=== PATIENT | female | born 1990 | race Two or more races ===

== ENCOUNTER 2024-11-15 11:56 | Emergency (ER) | payer MEDICAID, SELFPAY ==
--- NOTE | ~2024-11-15 | CT_ITS ---
EXAMINATION: CT ABDOMEN PELVIS WITHOUT IV CONTRAST HISTORY: abdominal pain, loose stools bloody stools COMPARISON: There are no prior studies for comparison. TECHNIQUE: CT scan of the abdomen and pelvis was performed without contrast using standard departmental protocol. Coronal and sagittal reformatted images were generated and reviewed. Oral contrast material was not administered at the request of the referring physician. This CT exam was performed with one or more of the following dose reduction techniques: automated exposure control, adjustment of the mA and/or kV according to patient size, use of iterative reconstruction technique. DLP: 548 mGy-cm FINDINGS: LOWER CHEST: The visualized lung bases are clear. There is no pleural effusion. CARDIOVASCULATURE: The heart is normal in size. There is no pericardial effusion. LIVER: The liver is normal in size and contour. The liver has an unremarkable unenhanced appearance. GALLBLADDER / BILE DUCTS: The gallbladder is unremarkable. There is no intra or extrahepatic biliary ductal dilatation. SPLEEN: The spleen is normal in size and has an unremarkable unenhanced appearance. PANCREAS: The pancreas has an unremarkable unenhanced appearance. ADRENAL GLANDS: Unremarkable. KIDNEYS/RETROPERITONEUM: No renal calculi are identified. There is no hydronephrosis. LYMPH NODES: No retroperitoneal lymphadenopathy is identified in the abdomen or pelvis. VASCULATURE: The abdominal aorta is normal in caliber. MESENTERY/PERITONEUM: No free fluid. No masses. There is no free intraperitoneal gas. STOMACH: There is a large amount of debris in the stomach. SMALL BOWEL: The small bowel is normal in caliber. COLON: There is probable wall thickening of the sigmoid colon. Evaluation is limited by underdistention and lack of intravenous and oral contrast material. APPENDIX: Normal. URINARY BLADDER/PELVIC ORGANS: The urinary bladder is collapsed, limiting evaluation. The uterus and ovaries have an unremarkable unenhanced appearance. BONES / SOFT TISSUES: No suspicious bony or soft tissue abnormalities. CT/CT abdomen pelvis wo IV con IMPRESSION: Probable wall thickening of the sigmoid colon, suggestive of colitis. Evaluation is limited by underdistention lack of intravenous and oral contrast material. Electronically signed by: Ramez Barclay MD 11/15/2024 02:30 PM EDT
--- NOTE | 2024-11-15 12:07 | ED.GENADULT ---
HPI - General Adult General Chief complaint: GI Bleed Stated complaint: blood in stools abd and back pain Time Seen by Provider: 11/15/24 13:19 Source: patient Mode of arrival: ambulatory Limitations: no limitations History of Present Illness ED Provider: CHANELLE ABDUL narrative: 34 yo female with no PMH here with c/o low L back pain wraps around abdomen goes to upper thigh it is achy she also notes waking up this AM with loose stools that have blood in it. No fevers reported. No n/v. She has not traveled, had food exposures, been on antibiotics. Her partner and her had the same food and partner is fine. She has never had any GI bleed symptoms. She is not on blood thinners MD complaint: GI bleed, abd and back pain Onset (ago): hour(s) (today) Location: back and abdomen Radiation: back and abdomen Severity: moderate Quality: aching Pain Consistency: intermittent Relieving factors: none Exacerbating factors: none Associated symptoms: other (bloody stools, loose stools) Treatments prior to arrival: none Related Data Previous Rx's ?Medication ?Instructions ?Recorded cyclobenzaprine 10 mg tablet 10 mg PO TID PRN muscle spasm #20 11/15/24 tabs hydrocodone 5 mg-acetaminophen 325 1 tab PO Q6H PRN pain #10 tabs 11/15/24 mg tablet ondansetron 4 mg disintegrating 4 mg PO Q8H PRN nausea and 11/15/24 tablet vomiting #20 tabs Allergies Allergy/AdvReac Type Severity Reaction Status Date / Time Iodinated Contrast Media Allergy Hives Verified 11/15/24 12:09 [Contrast Dye] Review of Systems Review of Systems: Constitutional : No Weight loss, No Fever, No Chills, ENT/Mouth : No Hearing loss, No Ear Pain, No Nasal Congestion, No Sinus Pain, No Hoarseness, No sore throat, No Rhinorrhea, No Swallowing Difficulty Cardiovascular : No Chest Pain, No SOB Respiratory : No Cough, No Dyspnea Gastrointestinal : No Nausea, No Vomiting, No Diarrhea, pos abdominal Pain, pos Hematochezia, No Melena Genitourinary : No Dysuria, No Urinary Frequency, No Hematuria, No Urinary Incontinence, Musculoskeletal : positive back pain Skin : No Skin Lesions, No rash Neuro : No Weakness, No Numbness, No Paresthesias, no loss of bowel or bladder incontinence, no saddle anesthesia all other systems are reviewed and are negative PMFSH Past Medical History Attestation statement: The following information was validated with the patient. Source: old records reviewed Medical History No pertinent past medical history Social History Social History (Updated 11/15/24 @ 13:45 by Paula Araya DO) Patient Tobacco Use Status: Tobacco use Unknown Smoked in Last 30 Days: Yes Use of substances other than those prescribed or required for medical reasons: Yes Substance Use Type: Marijuana Any prior treatment program specific to substance use: No Advance Directives: No Advance Directives Information Provided: Yes Do you have a plan to hurt others: No Plan Physical Exam ED Vital Signs: Vital Signs - 24 hr 11/15/24 12:08 11/15/24 14:04 11/15/24 15:07 Temperature 98.1 F 98.4 F Pulse Rate 93 65 Respiratory Rate 16 22 H 18 Blood Pressure 119/77 113/71 Pulse Oximetry 97 98 Oxygen Delivery Method Room Air Room Air BMI result Body Mass Index 31.5 Appearance: Alert. Oriented X3. No acute distress. Eyes: Pupils equal, round and reactive to light. ENT: Pharynx normal. Neck: Normal inspection. Neck supple. CVS: Normal heart rate and rhythm. Pulses normal. Respiratory: No respiratory distress. Breath sounds normal. Abdomen: Soft and mild ttp in lower abdomen no rebound Back: ttp along lower lumbar spine lateral Rectal: exam by EMA luna ext hemorrhoids and no blood on digit Skin: Skin warm and dry. Normal skin color. Normal skin turgor. Extremities: No lower extremity edema. No calf ttp Neuro: Oriented X 3. No motor deficit. No sensory deficit. CN2-12 intact Course Course Course Narrative: This is a rapid medical exam performed by Noemi Hunter NP: Additional HPI, ROS, PE not included below will be deferred to primary provider. 11/15/24 12:07 Patient is a 34-year-old female presenting to the ED with complaint of bright red blood in stool which began today. Denies history of same. Also has lower back pain and cramping. Plan: labs, UA Medications Administered Discontinued Medications Generic Name Dose Route Start Last Admin Trade Name Freq PRN Reason Stop Dose Admin Lactated Ringer's 1,000 mls @ 999 mls/hr 11/15/24 13:29 11/15/24 14:03 Lr IV 11/15/24 14:29 999 mls/hr .Q1H1M ONE Administration Morphine Sulfate 2 mg 11/15/24 13:29 11/15/24 14:04 Morphine Sulfate 2 Mg/Ml Cartridge IVPUSH 11/15/24 13:30 2 mg ONCE ONE Administration Protocol Ondansetron HCl 4 mg 11/15/24 13:29 11/15/24 14:02 Ondansetron Hcl 4 Mg/2 Ml Vial IVPUSH 11/15/24 13:30 4 mg ONCE ONE Administration Medical Decision Making Medical Decision Making MDM Narrative: 34 yo female no sig PMH no risk factors for colitis no fam hx of IBD comes in with low back and abdominal pain and bloody stools. No fevers, no recent travel, abx use, food exposures. At this time given history will obtain basic labs, rectal exam and will obtain CT scan for any signs of inflammation Differential Diagnosis Differential Diagnoses: The differential diagnosis associated with the presentation includes colitis, diarrhea, hemorrhoid, back pain, sciatica Admission/Observation Consideration of admission/observation: Escalation of care including admission/observation considered H/H stable, VS stable, no acute bleeding here CT scan focal colitis Lab Data [facility] Lab Attestation statement: I reviewed the patient's lab results. reassuring no anemia 11/15/24 12:26 11/15/24 12:26 Labs: Lab Results 11/15/24 Range/Units 12:26 WBC 7.8 (4.8-10.8) X10*3/uL RBC 4.51 (4.20-5.50) X10*6/uL Hgb 13.8 (12.0-16.0) g/dl Hct 41.2 (37.0-47.0) % MCV 91.4 (80.0-98.0) fL MCH 30.6 (27.0-33.0) pg MCHC 33.5 (31.0-35.0) g/dl RDW 12.3 (11.0-16.0) % Plt Count 284 (160-400) X10*3/uL MPV 10.0 (9.4-12.3) fL Immature Gran % (Auto) 0.4 (0.0-0.4) % Neut % (Auto) 64.3 (45-73) % Lymph % (Auto) 26.9 (20-40) % [place] % (Auto) 7.6 (2-11) % Eos % (Auto) 0.4 (0-4) % Baso % (Auto) 0.4 (0-2) % Lymph # (Auto) 2.1 (1.2-4.9) X10*3/uL [place] # (Auto) 0.6 (0.1-1.2) X10*3/uL Eos # (Auto) 0.0 (0.0-0.4) X10*3/uL Baso # (Auto) 0.0 (0.0-0.2) X10*3/uL Abs Immat Gran (auto) 0.03 (0.00-0.03) X10*3/uL Absolute Neuts (auto) 5.0 (2.0-8.3) x10*3/uL Absolute Nucleated RBC 0.000 (0.0-0.012) X10*3/uL Nucleated RBC % (auto) 0.0 (0.0-0.2) /100WBC Sodium 138 (135-145) mmol/L Potassium 4.8 (3.3-5.1) mmol/L Chloride 106 (96-108) mmol/L Carbon Dioxide 26 (22-29) mmol/L Anion Gap 11 L (12-20) BUN 14 (9-16) mg/dL Creatinine 0.66 (0.5-1.4) mg/dL Estim Creat Clear Calc 104.7 Estimated GFR > 60 Random Glucose 102 (60-115) mg/dL Calcium 9.6 (8.4-10.2) mg/dL Total Bilirubin 0.3 (0.0-1.0) mg/dL AST 19 (5-31) U/L ALT 10 (0-31) U/L Alkaline Phosphatase 50 (39-117) U/L C-Reactive Protein 0.85 H (< or = 0.50) mg/dL Total Protein 7.8 (6.5-8.0) g/dL Albumin 4.4 (3.5-5.0) g/dL Beta HCG, Quant < 2 mIU/mL Urine Color Yellow Urine Appearance Cloudy Urine pH 6.5 (5.0-9.0) Ur Specific [place] 1.020 (1.005-1.025) Urine Protein Negative (Neg-Trace) mg/dL Urine Glucose (UA) Negative (Negative) mg/dL Urine Ketones Negative (Negative) mg/dL Urine Blood Small (1+) H (Negative) Urine Nitrite Negative (Negative) Ur Leukocyte Esterase Trace H (Negative) Urine RBC 3-5 H (0-2) /HPF Urine WBC 0-5 (0-5) /HPF Ur Squamous Epith Cells 6-10 (0-2) /HPF Urine Bacteria 2+ (None Seen) Hyaline Casts 0-2 (0-2) /LPF Independent Interpretation I performed an independent interpretation of an: CT Scan (colitis) Radiology Impression Discussion of test interpretation with radiology: I have reviewed the radiologist's reading. Independent Historian Clinical information obtained from an independent historian. History obtained from or confirmed by: Other (partner) Prescription Management I considered prescription management with: Pain Medication and Other Discharge Plan Discharge Clinical Impression: Colitis Hemorrhoids Qualifiers: Hemorrhoid type: unspecified Qualified Code(s): K64.9 - Unspecified hemorrhoids Sciatica Qualifiers: Laterality: left Qualified Code(s): M54.32 - Sciatica, left side Patient Disposition: Home, Self-Care Instructions: Hemorrhoids (ED), Back Pain (ED), Colitis (ED) Additional Instructions: labs reassuring including no anemia at this time focal area of inflammation in the sigmoid colon as discussed this should resolve on its own return for worsening pain, increased bleeding, dizziness, fainting or any other concerns avoid aspirin rest and stay hydrated eat a bland diet - bananas, rice, apple sauce, toast over the next 3 days and then advance slowly Prescriptions: New cyclobenzaprine 10 mg tablet 10 mg PO TID PRN (Reason: muscle spasm) Qty: 20 0RF hydrocodone-acetaminophen 5-325 mg tablet 1 tab PO Q6H PRN (Reason: pain) Qty: 10 0RF Rx Instructions: partial fill okay; Partial Fill upon patient request. ondansetron 4 mg tablet,disintegrating 4 mg PO Q8H PRN (Reason: nausea and vomiting) Qty: 20 0RF Referrals: [facility] [Provider Group] (call to schedule) Stand Alone Forms: Work/School Release Print Language: Burkinan
[2024-11-15 12:08] VITALS: BP 119/77; PULSE 93; RESP 16; TEMP 36.7; O2SAT 97; BMI 31.5
[2024-11-15 12:32] LABS: MANUAL DIFF FLAG NO
[2024-11-15 12:33] LABS: Basophils Percent Auto 0.4 % (0-2); Eosinophils Percent Auto 0.4 % (0-4); Hematocrit 41.2 % (37.0-47.0); Hemoglobin 13.8 g/dl (12.0-16.0); Imm Gran Abs Auto 0.03 X10*3/uL (0.00-0.03); Imm Gran Pct Auto 0.4 % (0.0-0.4); Lymphocytes Absolute Auto 2.1 X10*3/uL (1.2-4.9); Lymphocytes Percent Auto 26.9 % (20-40); Mean Corpuscular HGB Conc 33.5 g/dl (31.0-35.0); Mean Corpuscular Hemoglobin 30.6 pg (27.0-33.0); Mean Corpuscular Volume 91.4 fL (80.0-98.0); Monocytes Absolute Auto 0.6 X10*3/uL (0.1-1.2); Monocytes Percent Auto 7.6 % (2-11); Neutrophils Percent Auto 64.3 % (45-73); Platelet Count 284 X10*3/uL (160-400); Red Blood Count 4.51 X10*6/uL (4.20-5.50); Red Cell Distribution Width 12.3 % (11.0-16.0); White Blood Count 7.8 X10*3/uL (4.8-10.8)
[2024-11-15 12:38] LABS: Appearance Urine Cloudy; Color Urine Yellow; Glucose Urine UA Negative (Negative); Leukocyte Esterase Urine Trace (Negative); Nitrite Urine Negative (Negative); PH 6.5 (5.0-9.0); UMIC TRIGGER UACC YES; Urine Blood Small (1+) (Negative); Urine Ketones Negative (Negative); Urine Protein Negative (Neg-Trace)
[2024-11-15 12:51] LABS: Bacteria Urine 2+ (None Seen); Hyaline Casts Urine 0-2 /LPF (0-2); WBC Urine 0-5 /HPF (0-5)
[2024-11-15 12:54] LABS: Alanine Aminotransferase 10 U/L (0-31); Albumin Level 4.4 g/dL (3.5-5.0); Anion Gap 11 (12-20); Aspartate Amino Transferase 19 U/L (5-31); Bilirubin Total 0.3 mg/dL (0.0-1.0); Blood Urea Nitrogen 14 mg/dL (9-16); Calcium 9.6 mg/dL (8.4-10.2); Carbon Dioxide 26 mmol/L (22-29); Chloride 106 mmol/L (96-108); Creatinine Clr Calc Pharmacy 104.7; Estimated Glomerular Filt Rate > 60; Glucose Random 102 mg/dL (60-115); Potassium 4.8 mmol/L (3.3-5.1); Sodium 138 mmol/L (135-145); Total Protein 7.8 g/dL (6.5-8.0)
[2024-11-15 12:55] LABS: Alkaline Phosphatase 50 U/L (39-117)
[2024-11-15 12:57] LABS: HCG Quantitative < 2 mIU/mL
[2024-11-15] MEDS: ondansetron HCL 4 MG/2 ML VIAL IVPUSH (14:02)
[2024-11-15] MEDS: Lactated Ringers 1,000 ML 999 ML IV (14:03)
[2024-11-15 14:04] VITALS: RESP 22
[2024-11-15] MEDS: Morphine Sulfate 2 MG/ML CARTRIDGE IVPUSH (14:04)
[2024-11-15 14:26] LABS: C Reactive Protein 0.85 mg/dL (< or = 0.50)
[2024-11-15 15:07] VITALS: BP 113/71; PULSE 65; RESP 18; TEMP 36.9; O2SAT 98
[2024-11-15 15:46] VITALS: BP 113/71; PULSE 65; RESP 18; TEMP 36.9; O2SAT 98
--- OUTSIDE RECORDS SUMMARY | 2024-11-15 16:22 | XMS_ITS | Clinical Summary ---
Author Organization [facility] Address [address] [place] [address] Care Team Providers Care Infantry Officer Name Role Phone Pcp, No Primary Care Provider Unavailabl e Allergies Active Allergy Reactions Criticality Noted Date Comments Iodinated Contrast Media Hives Medium 12/02/2021 Medications ondansetron (ZOFRAN-ODT) 4 MG disintegrating tablet Take 1 tablet (4 mg total) by mouth 3 times daily (every 8 hours) as needed for nausea or vomiting. Place tablet on tongue to dissolve. 6 tablet 2 Active loperamide (IMODIUM A-D) 2 MG capsule Take two now by mouth then one after each loose BM. Use sparingly. Stop for increasing symptoms and contact your doctor 10 capsule 2 Active benzonatate (TESSALON) 200 MG capsule Take 1 capsule (200 mg total) by mouth Every 4 (four) to 6 (six) hours as needed for cough. 20 capsule 2 Active oseltamivir (TAMIFLU) 75 MG capsule Take 1 capsule (75 mg total) by mouth 2 (two) times a day. 10 capsule 2 Active Social History Tobacco Use Types Packs/Day Years Used Date Smoking Tobacco: Never Smokeless Tobacco: Never Comments No Sex and Gender Information Value Date Recorded Sex Assigned at Female 12/26/2021 2:19 AM EDT Legal Sex Female 1:51 PM EDT Gender Identity Male 12/26/2021 2:19 AM EDT Sexual Orientation Not on file Last Filed Vital Signs Vital Sign Reading Time Taken Comments Blood Pressure 130/62 12/26/2021 3:45 AM EDT Pulse 102 12/26/2021 3:45 AM EDT Temperature 38.7 ??C (101.7 ??F) 12/26/2021 3:45 AM E DT Respiratory Rate 20 12/26/2021 3:45 AM EDT Oxygen Saturation 98% 12/26/2021 3:45 AM EDT Inhaled Oxygen Concentration - - Weight - - Height - - Body Mass Index - - Plan of Treatment Health Maintenance Due Date Last Done Comments Hepatitis C Virus Screening 1992 HIV Screening 2005 DTaP/Tdap/Td Vaccines (1 - Tdap) 2011 Hepatitis B Vaccines (1 of 3 - 19+ 3-dose series) 2011 Pap Smear (Ages 21-65) 2013 Influenza Vaccine 03/01/2024 COVID-19 Vaccine (3 - 2023-2 5 season) 2024 11/17/2021, 10/23/2021 HPV Vaccines Aged Out No longer eligi ble based on patient's age to complete this topic Pneumococcal Vaccine: Pediatric (0-5 Years) and At-Risk Patients (6 to 49 Years) Aged Out No longer eligible b ased on patient's age to complete this topic Care Teams Infantry Officer Relationship Specialty Start Date End Date Pcp, No PCP - General General Medicine 12/02/21
== END 2024-11-15 15:46 | disposition home or self-care (01) ==
PROVIDERS: Registered Nurse Emergency; Emergency Provider Emergency Medicine
DX: K52.9 Noninfective gastroenteritis and colitis, unspecified (principal); K64.9 Unspecified hemorrhoids; M54.42 Lumbago with sciatica, left side
CPT/HCPCS: 36415; 74176; 80053; 81001; 84702; 85025; 86140; 96374; 96375; 99284; J2270; J2405; J7120

== ENCOUNTER → 2024-11-15 13:29 | Outpatient (BNV) | payer MEDICAID, SELFPAY | PROVIDERS: Emergency Provider Emergency Medicine; Visit Provider Radiology Diagnostic Radiology | DX: R10.9 Unspecified abdominal pain (principal); K92.1 Melena; R19.7 Diarrhea, unspecified | CPT/HCPCS: 74176 ==

== ENCOUNTER 2024-11-18 23:22 | Emergency (ER) | payer MEDICAID, SELFPAY ==
[2024-11-18 23:31] VITALS: BP 108/60; PULSE 84; RESP 18; TEMP 37; O2SAT 96; BMI 33.3
[2024-11-18 23:49] LABS: Basophils Percent Auto 0.3 % (0-2); Eosinophils Absolute Auto 0.1 X10*3/uL (0.0-0.4); Eosinophils Percent Auto 1.1 % (0-4); Hematocrit 35.9 % (37.0-47.0); Hemoglobin 12.3 g/dl (12.0-16.0); Imm Gran Abs Auto 0.03 X10*3/uL (0.00-0.03); Imm Gran Pct Auto 0.3 % (0.0-0.4); Lymphocytes Percent Auto 28.6 % (20-40); MANUAL DIFF FLAG NO; Mean Corpuscular HGB Conc 34.3 g/dl (31.0-35.0); Mean Corpuscular Hemoglobin 31.3 pg (27.0-33.0); Mean Corpuscular Volume 91.3 fL (80.0-98.0); Mean Platelet Volume 9.9 fL (9.4-12.3); Monocytes Absolute Auto 0.9 X10*3/uL (0.1-1.2); Monocytes Percent Auto 8.6 % (2-11); Neutrophils Absolute Auto 6.4 x10*3/uL (2.0-8.3); Neutrophils Percent Auto 61.1 % (45-73); Platelet Count 262 X10*3/uL (160-400); Red Blood Count 3.93 X10*6/uL (4.20-5.50); Red Cell Distribution Width 12.1 % (11.0-16.0); White Blood Count 10.4 X10*3/uL (4.8-10.8)
[2024-11-18 23:54] LABS: Appearance Urine Clear; Color Urine Yellow; Glucose Urine UA Negative (Negative); Leukocyte Esterase Urine Small (1+) (Negative); Nitrite Urine Negative (Negative); Specific Gravity - Urine 1.025 (1.005-1.025); UMIC TRIGGER UACC YES; Urine Blood Trace (Negative); Urine Ketones Trace mg/dL (Negative); Urine Protein Negative (Neg-Trace)
[2024-11-19 00:03] LABS: Alanine Aminotransferase 9 U/L (0-31); Alkaline Phosphatase 47 U/L (39-117); Anion Gap 11 (12-20); Aspartate Amino Transferase 22 U/L (5-31); Bilirubin Total 0.2 mg/dL (0.0-1.0); Blood Urea Nitrogen 10 mg/dL (9-16); Calcium 9.1 mg/dL (8.4-10.2); Carbon Dioxide 26 mmol/L (22-29); Chloride 108 mmol/L (96-108); Creatinine Clr Calc Pharmacy 101.7; Estimated Glomerular Filt Rate > 60; Glucose Random 82 mg/dL (60-115); Potassium 4.3 mmol/L (3.3-5.1); Sodium 141 mmol/L (135-145); Total Protein 6.8 g/dL (6.5-8.0)
[2024-11-19 00:08] LABS: Bacteria Urine 1+ (None Seen); Hyaline Casts Urine 0-2 /LPF (0-2); UACC Culture Trigger YES; WBC Urine 0-5 /HPF (0-5)
--- NOTE | 2024-11-19 00:39 | ED.BACK ---
HPI - Back Pain/Injury General Chief Complaint: Back Pain/Injury Stated Complaint: severe lower back and abd pain Time Seen by Provider: 11/19/24 00:39 Source: patient Mode of arrival: ambulatory Limitations: no limitations History of Present Illness ED Provider: HPI Narrative: Patient has no history of injury to the back complaining of pain in the lower back for last 1 week was seen here on 11/[address] scan of the abdomen which was negative also been complaining of frequency with dysuria , no hematuria no history of kidney stone Related Data Previous Rx's ?Medication ?Instructions ?Recorded cyclobenzaprine 10 mg tablet 10 mg PO TID PRN muscle spasm #20 11/15/24 tabs hydrocodone 5 mg-acetaminophen 325 1 tab PO Q6H PRN pain #10 tabs 11/15/24 mg tablet ondansetron 4 mg disintegrating 4 mg PO Q8H PRN nausea and 11/15/24 tablet vomiting #20 tabs ibuprofen 600 mg tablet 600 mg PO Q6H PRN fever or pain 11/19/24 #30 tabs Allergies Allergy/AdvReac Type Severity Reaction Status Date / Time Iodinated Contrast Media Allergy Hives Verified 11/18/24 23:35 [Contrast Dye] Review of Systems Review of Systems: Yes all other systems are reviewed and are negative PMFSH Past Medical History Medical History No pertinent past medical history Social History Social History Patient Tobacco Use Status: Tobacco use Unknown Substance Use Type: Marijuana Advance Directives: No Advance Directives Information Provided: Yes Physical Exam Vital Signs: Vital Signs: Last Vital Signs Temp 98.0 F 11/19/24 01:15 Pulse 77 11/19/24 01:15 Resp 16 11/19/24 01:15 BP 116/76 11/19/24 01:15 Pulse Ox 97 11/19/24 01:15 O2 Del Method Room Air 11/19/24 01:15 BMI result Body Mass Index 33.3 Appearance: Alert. Oriented X3. No acute distress. Eyes: PERRLA, No Nystagmus ENT: Pharynx normal. Oral Mucosa moist Neck: Normal inspection. Neck supple. CVS: Normal heart rate and rhythm. Pulses normal. Respiratory: No respiratory distress. Equal air entry bilateral, no wheezing/rales/rhonchi Abdomen: Soft and nontender. Bowel sounds are present, no mass palpable, no CVA tenderness Skin: Skin warm and dry. Normal skin color. Normal skin turgor. Extremities: No lower extremity edema. No calf tenderness back; diffuse tenderness lumbar paraspinal area no midline tenderness SLR negative bilateral Neuro: Oriented X 3. No motor deficit. No sensory deficit.No cerebellar signs , cranial nerves II-XII intact Medications Administered Discontinued Medications Generic Name Dose Route Start Last Admin Trade Name Freq PRN Reason Stop Dose Admin Ibuprofen 600 mg 11/19/24 01:01 11/19/24 01:13 Ibuprofen 600 Mg Tablet PO 11/19/24 01:02 600 mg ONCE ONE Administration Medical Decision Making Medical Decision Making [facility] Narrative: Patient clinically with lumbar strain had just had a CT scan last week which was negative for any acute urine is negative discharge patient home Lab Data [facility] Lab Attestation statement: I reviewed the patient's lab results. 11/18/24 23:44 11/18/24 23:44 Labs: Lab Results 11/18/24 11/18/24 Range/Units 23:44 23:49 WBC 10.4 (4.8-10.8) X10*3/uL RBC 3.93 L (4.20-5.50) X10*6/uL Hgb 12.3 (12.0-16.0) g/dl Hct 35.9 L (37.0-47.0) % MCV 91.3 (80.0-98.0) fL MCH 31.3 (27.0-33.0) pg MCHC 34.3 (31.0-35.0) g/dl RDW 12.1 (11.0-16.0) % Plt Count 262 (160-400) X10*3/uL MPV 9.9 (9.4-12.3) fL Immature Gran % (Auto) 0.3 (0.0-0.4) % Neut % (Auto) 61.1 (45-73) % Lymph % (Auto) 28.6 (20-40) % Patrick % (Auto) 8.6 (2-11) % Eos % (Auto) 1.1 (0-4) % Baso % (Auto) 0.3 (0-2) % Lymph # (Auto) 3.0 (1.2-4.9) X10*3/uL Patrick # (Auto) 0.9 (0.1-1.2) X10*3/uL Eos # (Auto) 0.1 (0.0-0.4) X10*3/uL Baso # (Auto) 0.0 (0.0-0.2) X10*3/uL Abs Immat Gran (auto) 0.03 (0.00-0.03) X10*3/uL Absolute Neuts (auto) 6.4 (2.0-8.3) x10*3/uL Absolute Nucleated RBC 0.000 (0.0-0.012) X10*3/uL Nucleated RBC % (auto) 0.0 (0.0-0.2) /100WBC Sodium 141 (135-145) mmol/L Potassium 4.3 (3.3-5.1) mmol/L Chloride 108 (96-108) mmol/L Carbon Dioxide 26 (22-29) mmol/L Anion Gap 11 L (12-20) BUN 10 (9-16) mg/dL Creatinine 0.70 (0.5-1.4) mg/dL Estim Creat Clear Calc 101.7 Estimated GFR > 60 Random Glucose 82 (60-115) mg/dL Calcium 9.1 (8.4-10.2) mg/dL Total Bilirubin 0.2 (0.0-1.0) mg/dL AST 22 (5-31) U/L ALT 9 (0-31) U/L Alkaline Phosphatase 47 (39-117) U/L Total Protein 6.8 (6.5-8.0) g/dL Albumin 4.0 (3.5-5.0) g/dL Urine Color Yellow Urine Appearance Clear Urine pH 7.0 (5.0-9.0) Ur Specific [place] 1.025 (1.005-1.025) Urine Protein Negative (Neg-Trace) mg/dL Urine Glucose (UA) Negative (Negative) mg/dL Urine Ketones Trace (Negative) mg/dL Urine Blood Trace H (Negative) Urine Nitrite Negative (Negative) Ur Leukocyte Esterase Small (1+) H (Negative) Urine RBC 6-10 H (0-2) /HPF Urine WBC 0-5 (0-5) /HPF Ur Squamous Epith Cells 6-10 (0-2) /HPF Urine Bacteria 1+ (None Seen) Hyaline Casts 0-2 (0-2) /LPF Discharge Plan Discharge Clinical Impression: Strain of lumbar region Patient Disposition: Home, Self-Care Instructions: Low Back Strain (ED) Additional Instructions: Take ibuprofen for pain Take cyclobenzaprine for muscle relaxation as advised Follow with the PCP Prescriptions: New ibuprofen 600 mg tablet 600 mg PO Q6H PRN (Reason: fever or pain) Qty: 30 0RF No Action cyclobenzaprine 10 mg tablet 10 mg PO TID PRN (Reason: muscle spasm) Qty: 20 0RF hydrocodone-acetaminophen 5-325 mg tablet 1 tab PO Q6H PRN (Reason: pain) Qty: 10 0RF Rx Instructions: partial fill okay; Partial Fill upon patient request. ondansetron 4 mg tablet,disintegrating 4 mg PO Q8H PRN (Reason: nausea and vomiting) Qty: 20 0RF Stand Alone Forms: Work/School Release Interventions: ED Discharge Assessment Last Done: 11/19/24 01:15 Discharge Date/Time: 11/19/24 01:17 Print Language: Nigerian
[2024-11-19] MEDS: Ibuprofen 600 MG TABLET PO (01:13)
[2024-11-19 01:15] VITALS: BP 116/76; PULSE 77; RESP 16; TEMP 36.7; O2SAT 97
== END 2024-11-19 01:17 | disposition home or self-care (01) ==
PROVIDERS: Emergency Provider Internal Medicine
DX: S39.012A Strain of muscle, fascia and tendon of lower back, initial encounter (principal); R35.0 Frequency of micturition; R30.0 Dysuria; X58.XXXA Exposure to other specified factors, initial encounter; Y93.9 Activity, unspecified; Y92.9 Unspecified place or not applicable; Y99.8 Other external cause status
CPT/HCPCS: 36415; 80053; 81001; 85025; 87086; 99283

== ENCOUNTER 2024-12-13 08:14 | Emergency (ER) | payer OTHER, SELFPAY ==
--- NOTE | ~2024-12-13 | XR_ITS ---
EXAMINATION: XR ANKLE, RIGHT CLINICAL INFORMATION: painful COMPARISON: None available. TECHNIQUE: AP, lateral, and mortise views of the right ankle. FINDINGS: No fracture. Alignment is anatomic. No erosions. Joint spaces are maintained. Soft tissues are normal. XR/XR ankle RT 2V IMPRESSION: Normal right ankle. Electronically signed by: Gordo Addison MD 12/13/2024 09:04 AM EDT
--- NOTE | ~2024-12-13 | US_ITS ---
EXAMINATION: US TRIPLEX LOWER EXTREMITY, LEFT CLINICAL INFORMATION: Left upper thigh pain. COMPARISON: None available. TECHNIQUE: Color-flow triplex imaging with spectral analysis and compression Doppler were performed on the left lower extremity. FINDINGS: Respiratory variation, normal compression and augmented flow are noted throughout the left lower extremity. The visualized common femoral vein, superficial femoral vein, profunda femoral vein, popliteal vein and midcalf peroneal and posterior tibial venous segments show no evidence of deep venous thrombosis. There is no Alvarez's cyst. US/US venous duplex LE LT IMPRESSION: No evidence of deep venous thrombosis involving the left lower extremity. Electronically signed by: Gordo Addison MD 12/13/2024 10:40 AM EDT
--- NOTE | ~2024-12-13 | XR_ITS ---
EXAMINATION: XR FOOT, RIGHT CLINICAL INFORMATION: twisted COMPARISON: None available. TECHNIQUE: AP, lateral, and oblique views of the right foot. FINDINGS: The bones and soft tissues are normal. No fracture. Alignment is anatomic. Joint spaces are maintained. XR/XR foot RT min 3V IMPRESSION: Normal right foot. Electronically signed by: Gordo Addison MD 12/13/2024 10:08 AM EDT
[2024-12-13 08:20] VITALS: BP 116/85; PULSE 94; RESP 20; TEMP 37.3; O2SAT 99; BMI 30.7
--- OUTSIDE RECORDS SUMMARY | 2024-12-13 08:56 | XMS_ITS | Clinical Summary ---
Author Organization [facility] Address [address] [place] [address] Care Team Providers Care Hardboard Factory Worker Name Role Phone Pcp, No Primary Care [...] series) 2011 Pap Smear (Ages 21-65) 2013 COVID-19 Vaccine (3 - 2023-2 5 season) 2024 11/17/2021, 10/23/2021 Influenza Vaccine 03/01/2025 HPV Vaccines Aged Out No longer eligi ble based on patient's age to complete this topic Pneumococcal Vaccine: Pediatric (0-5 Years) and At-Risk Patients (6 to 49 Years) Aged Out No longer eligible b ased on patient's age to complete this topic Care Teams Hardboard Factory Worker Relationship Specialty Start Date End Date Pcp, No PCP - General General Medicine 12/02/21
--- OUTSIDE RECORDS SUMMARY | 2024-12-13 08:56 | XMS_ITS | Clinical Summary ---
Author Organization [facility] Address [address] [place] [address] Care Team Providers Care Hvac Tech Name Role Phone Unavailable Primary Care Provider Unavailabl e Encounters Date Type Department Care Team Description 11/26/2024 Population Health Risk Score [facility] ([facility]) Department [address] [address] [place] [id number] Provider, Population Health Generic from Last 3 Months Social History Tobacco Use Types Packs/Day Years Used Date Smoking Tobacco: Never Assessed Comments Unknown Sex and Gender Information Value Date Recorded Sex Assigned at Not on file Legal Sex Female 2:13 AM EDT Gender Identity Not on file Sexual Orientation Not on file Plan of Treatment Health Maintenance Due Date Last Done Comments Depression Screening 1992 HIV Screening 1992 SDOH Screening 1992 Alcohol/Substance Use Screening 2004 Tobacco Screening 2004 Family Planning (PISQ) 2007 Hepatitis C Screening 2010 DTaP/Tdap/Td Vaccines (1 - Tdap) 2011 Hepatitis B Vaccines (1 of 3 - 19+ 3-dose series) 2011 Pap Smear 2013 Cervical Cancer Screening 2022 HPV/Cotest 2022 COVID-19 Vaccine (1 - 2023-2 5 season) 2024 Influenza Vaccine (#1) 2024 Zoster Vaccines (1 of 2) 2042 RSV Patients and Pa tients Aged 60 years or older (1 - 1-dose 75+ series) 2067 HIB Vaccines Aged Out No longer eligi ble based on patient's age to complete this topic HPV Vaccines Aged Out No longer eligi ble based on patient's age to complete this topic Hepatitis A Vaccines Aged Out No long er eligible based on patient's age to complete this topic IPV Vaccines Aged Out No longer eligi ble based on patient's age to complete this topic Meningococcal Vaccine Aged Out No stephen terence eligible based on patient's age to complete this topic Pneumococcal Vaccine: Pediat rics (0 to 5 Years) and At-Risk Patients (6 to 49) Years) Aged Out No longer eligible b ased on patient's age to complete this topic RSV under 20 months Aged Out No longe r eligible based on patient's age to complete this topic Rotavirus Vaccines Aged Out No longer eligible based on patient's age to complete this topic
--- NOTE | 2024-12-13 09:50 | ED.GENADULT ---
HPI - General Adult General Chief complaint: General Medical Stated complaint: r ankle pain l leg swelling Time Seen by Provider: 12/13/24 09:04 Source: patient, RN notes reviewed and old records reviewed Mode of arrival: ambulatory History of Present Illness ED Provider: Yamileth Back PA-C HPI narrative: 34-year-old female with no significant past medical history presenting to the ED complaining of right ankle pain s/p twisting injury yesterday, also reports some left upper thigh pain radiating to buttock. Denies fall to ground, head strike, LOC, numbness, tingling, weakness, low back pain, incontinence, retention, hematuria Related Data Previous Rx's ?Medication ?Instructions ?Recorded cyclobenzaprine 10 mg tablet 10 mg PO TID PRN muscle spasm #20 11/15/24 tabs hydrocodone 5 mg-acetaminophen 325 1 tab PO Q6H PRN pain #10 tabs 11/15/24 mg tablet ondansetron 4 mg disintegrating 4 mg PO Q8H PRN nausea and 11/15/24 tablet vomiting #20 tabs ibuprofen 600 mg tablet 600 mg PO Q6H PRN fever or pain 11/19/24 #30 tabs Allergies Allergy/AdvReac Type Severity Reaction Status Date / Time Iodinated Contrast Media Allergy Hives Verified 12/13/24 08:23 [Contrast Dye] Review of Systems Review of Systems: Yes all other systems are reviewed and are negative Constitutional: Constitutional: Reports as per [facility] Past Medical History Attestation statement: The following information was validated with the patient. Source: old records reviewed Medical History No pertinent past medical history Social History Social History Patient Tobacco Use Status: Tobacco use Unknown Substance Use Type: Marijuana Advance Directives: No Advance Directives Information Provided: Yes Physical Exam ED Vital Signs: Vital Signs - 24 hr 12/13/24 08:20 12/13/24 10:14 Temperature 99.2 F Pulse Rate 94 71 Respiratory Rate 20 16 Blood Pressure 116/85 116/71 Pulse Oximetry 99 98 Oxygen Delivery Method Room Air Room Air BMI result Body Mass Index 30.7 Const General: cooperative, healthy appearing and no acute distress Orientation/consciousness: patient oriented x3 Limitations: no limitations HENMT Head: Yes normal to inspection and Yes atraumatic Ears: hearing grossly normal bilaterally General nose exam: Normal external nose present Face and sinus: Yes normal facial exam Eyes General: appearance normal, both eyes and all related structures EOM: EOMs intact bilaterally Neck Neck: Yes normal visual inspection and Yes no meningeal signs Resp Effort & Inspection: normal respiratory effort and no respiratory distress Auscultation: clear to auscultation bilaterally Cardio Rate: regular rate Heart sounds: S1 normal heart sound present and S2 normal heart sound present Skin Rashes: no rashes Wounds: no wounds Neuro General: patient oriented x3, tone normal and no meningeal signs Cranial nerves: Yes CN's II-XII intact bilaterally Gait exam (Neuro): Normal gait present Extrem Other: Right ankle with mild lateral malleolar swelling. Diffusely tender to palpation. Mild proximal foot tenderness. Neurovascularly intact. No crepitus. Left upper posterior thigh with reproducible tenderness. Compartments soft. No rash, varicosities, erythema. No calf tenderness. General: Yes normal to inspection Course Course Course Narrative: XR ankle RT 2V IMPRESSION: Normal right ankle. 1049--XR foot RT min 3V IMPRESSION: Normal right foot. US venous duplex LE LT IMPRESSION: No evidence of deep venous thrombosis involving the left lower extremity. Results discussed with patient including worrisome signs and symptoms and strict return precautions, and when to return to the emergency department. They verbalized understanding and feel safe for discharge at this time. Medications Administered Discontinued Medications Generic Name Dose Route Start Last Admin Trade Name Freq PRN Reason Stop Dose Admin Ketorolac Tromethamine 30 mg 12/13/24 09:20 12/13/24 09:59 Ketorolac Tromethamine 30 Mg/Ml Vial IM 12/13/24 09:21 30 mg ONCE ONE Administration Procedures Orthopedic Splinting/Casting Injury #1: Side: right Lower Extremity Injury Location: ankle Lower Extremity Immobilizer: [employer] Other Orthopedic Equipment: crutches Medical Decision Making Medical Decision Making MDM Narrative: 34-year-old female with no significant past medical history presenting to the ED complaining of right ankle pain s/p twisting injury yesterday, also reports some left upper thigh pain radiating to buttock. On exam vital signs stable, NAD, nontoxic appearing, physical exam as noted above. Concern for sprain vs fracture vs DVT. , and staff, low suspicion for compartment syndrome or sciatica. No evidence of cellulitis Plan: X-ray, ultrasound, pain control Please refer to course for remaining clinical decision making, interpretation of labs/imaging results, and discussions with consultants and/or family members. Differential Diagnosis Differential Diagnoses: The differential diagnosis associated with the presentation includes As above Admission/Observation Consideration of admission/observation: Escalation of care including admission/observation considered Lab Data MDM Lab Attestation statement: I reviewed the patient's lab results. Independent Interpretation I performed an independent interpretation of an: Plain X-Ray and Ultrasound Radiology Impression Discussion of test interpretation with radiology: I have reviewed the radiologist's reading. External Record Review External record reviewed: Inpatient record, Office record, Outpatient record, Prior outpatient labs, Prior outpatient radiology, Primary care record and Outside ED record Tests considered The following testing was considered but not selected: As above Prescription Management I considered prescription management with: Pain Medication Chronic Conditions Patient?s care impacted by: Other Social Determinants Patient?s care significantly limited by Social Determinants of Health including: Other Social Determinant of Health Discharge Plan Discharge Clinical Impression: Ankle sprain, Acute thigh pain Patient Disposition: Home, Self-Care Instructions: Ankle Sprain (DC), Leg Pain (ED) Additional Instructions: Your x-rays and ultrasound were unremarkable Ice and elevate your ankle Take Tylenol and ibuprofen for pain Wear Geraldo wrap for comfort/stability and compression Follow up with your doctor Return to the ED if symptoms persist or worsen Prescriptions: No Action cyclobenzaprine 10 mg tablet 10 mg PO TID PRN (Reason: muscle spasm) Qty: 20 0RF hydrocodone-acetaminophen 5-325 mg tablet 1 tab PO Q6H PRN (Reason: pain) Qty: 10 0RF Rx Instructions: partial fill okay; Partial Fill upon patient request. ondansetron 4 mg tablet,disintegrating 4 mg PO Q8H PRN (Reason: nausea and vomiting) Qty: 20 0RF ibuprofen 600 mg tablet 600 mg PO Q6H PRN (Reason: fever or pain) Qty: 30 0RF Referrals: Physician,None [Primary Care Provider] - 5 days Stand Alone Forms: Work/School Release Print Language: Austrian
[2024-12-13] MEDS: Ketorolac Tromethamine 30 MG/ML VIAL IM (09:59)
[2024-12-13 10:14] VITALS: BP 116/71; PULSE 71; RESP 16; O2SAT 98
[2024-12-13 11:38] VITALS: BP 116/71; PULSE 71; RESP 16; TEMP 36.8; O2SAT 98
== END 2024-12-13 11:38 | disposition home or self-care (01) ==
PROVIDERS: Emergency Provider Emergency Medicine
DX: M25.571 Pain in right ankle and joints of right foot (principal); M79.662 Pain in left lower leg; S93.401A Sprain of unspecified ligament of right ankle, initial encounter; X50.1XXA Overexertion from prolonged static or awkward postures, initial encounter; Y93.9 Activity, unspecified; Y92.9 Unspecified place or not applicable; Y99.9 Unspecified external cause status
CPT/HCPCS: 73600; 73630; 93971; 96372; 99283; 99284; J1885

== ENCOUNTER → 2024-12-13 08:50 | Outpatient (BNV) | payer MEDICAID, SELFPAY | PROVIDERS: Emergency Provider Emergency Medicine; Visit Provider Radiology Diagnostic Radiology | DX: M79.652 Pain in left thigh (principal); M79.671 Pain in right foot; M25.571 Pain in right ankle and joints of right foot | CPT/HCPCS: 73600; 73630; 93971 ==